=== PATIENT | female | born 1960 | race African-American/Black ===

== ENCOUNTER 2023-12-02 14:41 | Emergency (ER) | payer OTHER ==
[~2023-12-02] VITALS: Ht 162.6 cm; Wt 64.0 kg
[2023-12-02] MEDS ORDERED: benazepril (15:07)
[2023-12-02 15:08] VITALS: TEMP 98.4; O2SAT 98
[2023-12-02 17:32] LABS: BASOPHILS % 0.8 % (0.0-2.0); EOSINOPHILS % 1.7 % (0.0-5.0); HEMATOCRIT. 39.4 % (36.0-48.0); HEMOGLOBIN. 12.9 g/dL (12.0-16.0); LYMPHOCYTES % 30.3 % (20.0-50.0); MEAN CORPUSCULAR HEMOGLOBIN 29.7 pg (28.0-32.0); MEAN CORPUSCULAR HGB CONC 32.8 g/dL (31.0-37.0); MEAN CORPUSCULAR VOLUME 90.5 fL (81.0-99.0); MEAN PLATELET VOLUME 7.4 fl (7.4-10.4); MONOCYTES % 5.7 % (2.0-8.0); NEUTROPHILS % 61.5 % (40.0-76.0); PLATELET 220 x1000/uL (130-400); RED BLOOD CELL COUNT 4.35 mill/uL (4.2-5.4); RED CELL DISTRIBUTION WIDTH 13.6 % (11.6-14.6); WHITE BLOOD COUNT 4.8 x1000/uL (4.5-11.0)
[2023-12-02 17:35] LABS: CHLORIDE 106 mEq/L (98-107); POTASSIUM 3.1 mEq/L (3.5-5.1); SODIUM 142 mEq/L (136-145)
[2023-12-02 17:36] LABS: CALCIUM 9.7 mg/dL (8.7-10.4); CARBON DIOXIDE 29 mEq/L (21-32)
[2023-12-02 17:38] LABS: INR 0.9; PROTHROMBIN TIME 10.3 sec (9.6-11.0)
[2023-12-02 17:41] LABS: CREATININE 0.8 mg/dL (0.6-1.0); GLUCOSE 114 mg/dL (70-105); UREA NITROGEN BLOOD 11 mg/dL (9-23)
[2023-12-02 17:43] LABS: ALANINE AMINOTRANSFERASE 54 IU/L (10-49); ALBUMIN 4.9 g/dL (3.2-4.8); ASPARTATE AMINOTRANSFERASE 33 IU/L (<34); BILIRUBIN DIRECT 0.1 mg/dL (<=3.0); BILIRUBIN TOTAL 0.5 mg/dL (0.1-1.0); PROTEIN TOTAL 7.9 g/dL (6.0-8.3)
[2023-12-02 17:45] LABS: TROPONIN I HIGH SENSITIVITY < 4 ng/L (3.0-34)
[2023-12-02] MEDS: POTASSIUM CHLORIDE 20MEQ/PACKET PO NR (19:30)
[2023-12-02 19:53] VITALS: BP 180/96; PULSE 78; RESP 20; O2SAT 99
[2023-12-02] MEDS ORDERED: AMLO2.5T45 MT (20:55)
[2023-12-02] MEDS ORDERED: ROSU40TA MT (20:55)
[2023-12-02] MEDS ORDERED: BENA20TA77 MT (20:55)
== END 2023-12-02 21:08 | disposition home or self-care (01) ==
LOC: ER 14:41
DX: I16.0 Hypertensive urgency (principal); E87.6 Hypokalemia; E11.9 Type 2 diabetes mellitus without complications; E78.00 Pure hypercholesterolemia, unspecified; I10 Essential (primary) hypertension
CPT/HCPCS: 36415; 71045; 80048; 80076; 84484; 85025; 93005; 99291